=== PATIENT | male | born 1995 | race Two or more races ===

== ENCOUNTER 2021-01-05 21:38 | Emergency (ER) | payer MEDICAID ==
[~2021-01-05] VITALS: Ht 172.7 cm; Wt 80.0 kg
[2021-01-05] MEDS ORDERED: ONDANSETRON 4MG ODT PO ONE (22:15)
[2021-01-05] MEDS ORDERED: HALOPERIDOL LACTATE 5MG/ML VIAL IM ONE (22:15)
[2021-01-05] MEDS ORDERED: ONDA4TAB5 MT (23:27)
[2021-01-05 23:45] VITALS: BP 115/74
== END 2021-01-05 23:45 | disposition home or self-care (01) ==
LOC: ER 21:38
DX: R11.10 Vomiting, unspecified (principal); F12.90 Cannabis use, unspecified, uncomplicated; F10.129 Alcohol abuse with intoxication, unspecified; Y90.9 Presence of alcohol in blood, level not specified
CPT/HCPCS: 96372; 99283; J1630; Q0162

== ENCOUNTER 2023-11-07 13:12 | Emergency (ER) | payer MEDICAID ==
[~2023-11-07] VITALS: Ht 182.9 cm; Wt 91.0 kg
[~2023-11-07 13:12] MED LIST: ONDA4TAB5 MT
[2023-11-07 13:15] VITALS: O2SAT 99
[2023-11-07] MEDS: KETOROLAC 60MG/2ML VIAL IM STA (13:23)
[2023-11-07] MEDS: TETANUS, DIPHTHERIA, PERTUSSIS VAC/PF 0.5ML (>10YR OLD) IM ONE (13:30)
[2023-11-07] MEDS: BACITRACIN ZINC OINT UDPKT TOP ONE (13:30)
[2023-11-07] MEDS: AMOXICILLIN/POTASSIUM CLAVULANATE 875/125MG TAB PO NR (14:40)
[2023-11-07] MEDS: LIDOCAINE HCL/EPINEPHRINE 1%-EPI 1:100,000 20 ML VIAL INFIL ONE (15:08)
[2023-11-07] MEDS ORDERED: AMOX1TAB16 MT (16:48)
[2023-11-07] MEDS ORDERED: IBUP-2029 MT (16:48)
[2023-11-07 17:16] VITALS: BP 145/82; PULSE 78; RESP 16; TEMP 98
== END 2023-11-07 17:18 | disposition home or self-care (01) ==
LOC: ER 13:12
DX: S51.051A Open bite, right elbow, initial encounter (principal); F12.90 Cannabis use, unspecified, uncomplicated; F10.10 Alcohol abuse, uncomplicated; Y90.9 Presence of alcohol in blood, level not specified; W54.0XXA Bitten by dog, initial encounter; Y93.89 Activity, other specified; Y92.89 Other specified places as the place of occurrence of the external cause; Y99.8 Other external cause status
CPT/HCPCS: 73080; 90715; 12002; 90471; 96372; 99284; J1885; J3490; Z7610